=== PATIENT | female | born 2000 ===

== ENCOUNTER 2025-02-11 09:10 | Emergency (ER) | payer OTHER, SELFPAY ==
[2025-02-11] VITALS (9 sets, daily range): BP systolic 108–141; BP diastolic 61–76; PULSE 74–120; RESP 16–22; TEMP 36.2–36.8; O2SAT 97–100; BMI 25.4
--- NOTE | ~2025-02-11 | XR_ITS ---
CLINICAL HISTORY: sob 2 view chest x-ray Comparison: None Findings: No consolidation or effusion. Heart size is normal. No acute fracture. IMPRESSION: 1. No acute findings. This document has been electronically signed by: Judi Bryant MD on 02/11/2025 11:35:19
--- NOTE | 2025-02-11 09:27 | ECG_ITS ---
Test Reason : ALLERGIC REACTION Blood Pressure : */* mmHG Vent. Rate : 86 BPM Atrial Rate : 86 BPM P-R Int : 124 ms QRS Dur : 80 ms QT Int : 338 ms P-R-T Axes : 70 85 61 degrees QTcB Int : 404 ms Normal sinus rhythm with sinus arrhythmia Normal ECG No previous ECGs available Referred By: Nayana Paulino Electronically Signed By: DAVID DAVIS
--- NOTE | 2025-02-11 09:38 | ED_ITS ---
HPI - Allergic Reaction General Chief complaint: Allergic Reaction Stated complaint: allergic reaction, rash, sob Time Seen by Provider: 02/11/25 09:22 Source: patient Mode of arrival: ambulatory Limitations: no limitations History of Present Illness ED Provider: NAYANA PAULINO PA-C HPI narrative: 24-year-old female with no significant pmhx presents to the ED today for evaluation of possible allergic reaction. Patient reports consuming brownies that her mother made with peanut butter 5-6 days ago. Since this time reports rash to her face/extremities with associated shortness of breath. Reports significant itching, causing her to scratch so hard that she bleeds. She states this often happens when she has nuts and/or peanut butter. She has never been evaluated by an hydrochloric acid operator and has never been diagnosed with a nut allergy. She has never had to be hospitalist for her symptoms. Denies new soaps, lotions, detergents. She does report restarting her prozac approximately 3 weeks ago. She has tolerated this in the past. No other new medications/medication changes. No recent outdoor activities. No known tick or insect bites. Admits to hx of asthma. Has been using her home inhaler without relief. 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 Denies any known allergies. Denies headache, dizziness, vision changes, chest pain, N/V/D, abdominal pain. Related Data Previous Rx's ?Medication ?Instructions ?Recorded diphenhydramine HCl 25 mg capsule 50 mg (2 x 25 mg) PO Q8H PRN 02/11/25 (Benadryl) itching #20 caps epinephrine 0.3 mg/0.3 mL 0.3 mg (0.3 mL) IM Q10M PRN 02/11/25 injection, auto-injector (EpiPen) anaphylaxis #2 ea famotidine 20 mg tablet (Pepcid) 20 mg PO DAILY PRN itching #20 tabs 02/11/25 prednisone 10 mg tablet See Rx Instructions .Route 02/11/25 .COMPLEX #60 tabs Allergies Allergy/AdvReac Type Severity Reaction Status Date / Time No Known Allergies Allergy Verified 02/11/25 09:17 Review of Systems 2 Review of Systems: Yes all other systems are reviewed and are negative PMFSH Past Medical History Attestation statement: The following information was validated with the patient. Source: old records reviewed and nursing notes reviewed Social History Social History Advance Directives: No Advance Directives Information Provided: Yes Do you have a plan to hurt others: No Plan Patient : No Physical Exam ED Vital Signs: Vital Signs - 24 hr 02/11/25 09:11 02/11/25 09:23 02/11/25 09:53 Temperature 97.5 F 97.2 F Pulse Rate 120 H 106 H 74 Respiratory Rate 22 H 20 18 Blood Pressure 122/76 119/72 Pulse Oximetry 100 97 Oxygen Delivery Method Room Air Room Air 02/11/25 09:55 02/11/25 10:00 02/11/25 12:06 Temperature 97.3 F 97.3 F Pulse Rate 75 91 Respiratory Rate 20 16 16 Blood Pressure 126/63 108/61 Pulse Oximetry 100 98 Oxygen Delivery Method Room Air Room Air 02/11/25 13:55 02/11/25 14:09 02/11/25 14:16 Temperature 98.3 F 98.3 F Pulse Rate 104 H 106 H 106 H Respiratory Rate 16 16 16 Blood Pressure 141/76 H 141/76 H Pulse Oximetry 100 100 Oxygen Delivery Method Room Air Room Air BMI result Body Mass Index 25.4 On arrival, patient tachycardic and tachypneic. Not hypoxic. General: Well appearing, in no acute distress. Skin: Maculopapular rash noted to face and neck. Head: Normocephalic, atraumatic. EENT: Hearing is intact b/l. Conjunctiva clear. Sclera is anicteric. PERRLA. Moist mucous membranes.?mild edema noted to b/l tonsils, uvula midline. Controlling secretions and speaking in complete sentences. Neck: Supple without LAD. Airway patent. Cardiac: Chest wall symmetric. RRR Lungs: Normal respiratory effort without accessory muscle use. No tripoding. On auscultation, there are diffuse inspiratory wheezes, more so on left. no crackles. Abdomen: Soft, non-tender, non-distended. No rebound tenderness or guarding. Positive BS x4. Back: No midline spinous or paraspinal tenderness. No step off deformity. Ext: +see photo of LE below. noted excoriations/scabbed over lesions. no sloughing. non dermatomal pattern. spares palms/soles/webbed spaces/mucous membranes. no target lesions. Neuro: AOx3. Normal speech. Ambulating with steady gait. Course Course Course Narrative: 1301 -- CBC without leukocytosis or left shift. No anemia. H&H stable. Elevated eosinophils at 5.3. Chemistry without acute electrolyte abnormality requiring intervention. No HADLEY. Liver function around baseline. Negative COVID, flu, RSV. Chest x-ray unremarkable - no focal infiltrate or consolidation to suggest pneumonia. EKG showing normal sinus rhythm with sinus arrhythmia, rate of 86 beats per minute, no acute ischemic changes or ST elevations. > on re-evaluation of patient, I note significant improvement in overall appearance of facial rash. Less erythematous. She reports improvement in overall itching, with the exception of her neck. She states her neck still feels very itchy. She states that her breathing has overall improved and her airway appears patent. she is satting 100% on RA. On auscultation, she has mild inspiratory wheeze noted to left upper lung, after receiving magnesium, Solu-Medrol and breathing treatment. > given continued symptoms primarily around neck/airway, I have concern with sending patient home. I discussed possible admission for continued treatment/observation and patient is amenable. will reach out to hospitalist to discuss. 1400 -- Hospitalist ELIER Lubin at bedside. patient now stating she does not wish to stay for observation. he feels this is reasonable given patient is hemodynamically stable and overall well appearing. recommending discharge home rather than admission. I discussed with my attending dr. cuevas who has evaluated patient at bedside. feels discharge home on prednisone taper & epi pen is reasonable. she has been observed in the ED for >4 hours at this point with improvement in symptoms. patient is agreeable with this. advised to avoid peanuts/nuts. educated on epi pen use. prednisone taper sent to pharmacy along w/ benadryl and prednisone for itching. 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 Patient has remained stable throughout ED visit today. Discussed worrisome signs and symptoms and when to return to the ED. All questions answered at this time. Patient is agreeable with disposition and stable for discharge. Medications Administered Discontinued Medications Generic Name Dose Route Start Last Admin Trade Name Freq PRN Reason Stop Dose Admin Albuterol Sulfate 2.5 mg 02/11/25 13:51 02/11/25 13:53 Albuterol Sulfate (0.083%) 2.5 Mg/3 Ml Vial.Neb INHALE 02/11/25 13:52 2.5 mg ONCE ONE Administration Albuterol Sulfate 5 mg/ 0 mg 02/11/25 09:42 02/11/25 09:45 Albuterol/Ipratropium 3 ml INHALE 02/11/25 09:43 1 each ONCE ONE Administration Diphenhydramine HCl 25 mg 02/11/25 09:42 02/11/25 09:52 Diphenhydramine Hcl 50 Mg/Ml Vial IVPUSH 02/11/25 09:43 25 mg ONCE ONE Administration Famotidine 20 mg 02/11/25 09:42 02/11/25 09:50 Famotidine/Pf 20 Mg/2 Ml Vial IVPUSH 02/11/25 09:43 20 mg ONCE ONE Administration Magnesium Sulfate 2 gm in 50 mls @ 150 mls/hr 02/11/25 11:24 02/11/25 11:57 Magnesium Sulfate/H2o IV 02/11/25 11:43 Infused ONCE ONE Infusion Methylprednisolone Sodium Succinate 125 mg 02/11/25 09:27 02/11/25 09:45 Methylprednisolone Sod Succ 125 Mg/2 Ml Vial IVPUSH 02/11/25 09:28 125 mg ONCE ONE Administration Medical Decision Making Medical Decision Making MDM Narrative: 24-year-old female with no significant pmhx presents to the ED today for evaluation of possible allergic reaction. Initially tachycardic to 120, tachypneic to 22. Not hypoxic. Not requiring supplemental O2. please refer to physical exam section for findings. Differential diagnosis includes general allergic reaction, asthma, asthma exacerbation, contact/atopic/eczematous dermatitis, psoriasis. History and exam findings not consistent with lyme/tick bourne illness, herpes zoster/simplex, scabies, HFM, dangerous etiologies of rash such as SJS/TEN, or secondary dangerous causes such as petechial rashes from thrombocytopenia or rickettsial infections.? Plan: labs, viral swabs, CXR, EKG, lyme/tick testing ED bronch protocol + solumedrol + benadryl + pepcid ordered. Differential Diagnosis Differential Diagnoses: The differential diagnosis associated with the presentation includes as above. Admission/Observation Consideration of admission/observation: Escalation of care including admission/observation considered Consult Healthcare Provider Management of the patient was discussed with: Hospitalist (desean) Lab Data MDM Lab Attestation statement: I reviewed the patient's lab results. as above. 02/11/25 09:43 02/11/25 09:43 Labs: Lab Results 02/11/25 02/11/25 Range/Units 09:43 11:03 WBC 5.9 (4.8-10.8) X10*3/uL RBC 4.97 (4.20-5.50) X10*6/uL Hgb 14.8 (12.0-16.0) g/dl Hct 42.2 (37.0-47.0) % MCV 84.9 (80.0-98.0) fL MCH 29.8 (27.0-33.0) pg MCHC 35.1 H (31.0-35.0) g/dl RDW 13.1 (11.0-16.0) % Plt Count 239 (160-400) X10*3/uL MPV 9.0 L (9.4-12.3) fL Immature Gran % (Auto) 0.2 (0.0-0.4) % Neut % (Auto) 56.7 (45-73) % Lymph % (Auto) 23.9 (20-40) % [place] % (Auto) 12.9 H (2-11) % Eos % (Auto) 5.3 H (0-4) % Baso % (Auto) 1.0 (0-2) % Lymph # (Auto) 1.4 (1.2-4.9) X10*3/uL [place] # (Auto) 0.8 (0.1-1.2) X10*3/uL Eos # (Auto) 0.3 (0.0-0.4) X10*3/uL Baso # (Auto) 0.1 (0.0-0.2) X10*3/uL Abs Immat Gran (auto) 0.01 (0.00-0.03) X10*3/uL Absolute Neuts (auto) 3.3 (2.0-8.3) x10*3/uL Absolute Nucleated RBC 0.000 (0.0-0.012) X10*3/uL Nucleated RBC % (auto) 0.0 (0.0-0.2) /100WBC Sodium 139 (135-145) mmol/L Potassium 4.5 (3.3-5.1) mmol/L Chloride 107 (96-108) mmol/L Carbon Dioxide 23 (22-29) mmol/L Anion Gap 14 (12-20) BUN 11 (9-16) mg/dL Creatinine 1.02 (0.5-1.4) mg/dL Estim Creat Clear Calc 74.1 Estimated GFR > 60 Random Glucose 93 (60-115) mg/dL Calcium 9.7 (8.4-10.2) mg/dL Magnesium 1.9 (1.6-2.6) mg/dL Total Bilirubin 0.8 (0.0-1.0) mg/dL AST 36 H (5-31) U/L ALT 22 (0-31) U/L Alkaline Phosphatase 49 (39-117) U/L Total Protein 7.1 (6.5-8.0) g/dL Albumin 4.6 (3.5-5.0) g/dL Influenza Type A (PCR) NEGATIVE (Negative) Influenza Type B (PCR) NEGATIVE (Negative) RSV RNA Qual (PCR) NEGATIVE (Negative) SARS-CoV-2 RNA (RT-PCR) NEGATIVE (Negative) Independent Interpretation I performed an independent interpretation of an: EKG and Plain X-Ray Interpretation: EKG showing normal sinus rhythm, rate of 86 beats per minute, QT 338, no acute ischemic changes or ST elevations Chest x-ray without infiltrate or consolidation Radiology Impression Discussion of test interpretation with radiology: I have reviewed the radiologist's reading. Radiologist Impression: Procedure(s): XR chest 2V Accession Number(s): [id number] cc: Physician,None ; Nayana Paulino~ CLINICAL HISTORY: sob 2 view chest x-ray Comparison: None Findings: No consolidation or effusion. Heart size is normal. No acute fracture. IMPRESSION: 1. No acute findings. This document has been electronically signed by: Judi Bryant MD on 02/11/2025 11:35:19 Prescription Management I considered prescription management with: Other (prednisone, epi pen) Chronic Conditions Patient?s care impacted by: Other (asthma) Social Determinants Patient?s care significantly limited by Social Determinants of Health including: Other Social Determinant of Health Critical Care Time Critical Care Time Critical Care Time: No Discharge Plan Discharge Clinical Impression: Allergic reaction Patient Disposition: Home, Self-Care Instructions: General Allergic Reaction (ED) Additional Instructions: You have been evaluated in the Emergency Department today for an allergic reaction. You have been given medications to control your symptoms and after observation for several hours in the Emergency Department, you are stable for discharge at this time. You can take Benadryl and Pepcid, which are available over the counter, to help control your symptoms at home. You have also been given a prescription for steroids, please take them as directed. Please schedule an appointment with your primary care provider for follow up. I have provided you with a referral to an hydrochloric acid operator for further testing. Call them to establish care, they will not call you. Return to the Emergency Department if you experience rashes, difficulty breathing or swallowing, lip/mouth/tongue swelling, vomiting, or for any other concerning symptoms. An epi pen has been sent to your pharmacy, only to be used in severe emergencies such as inability to breath, trouble speaking, shortness of breath or any signs of anaphylaxis as discussed. If an episode pen is used, it it crucial that you come to the ED to be evaluated after use as you may have a rebound reaction. How to use an epi pen: * Place the orange tip against the middle of the outer thigh. * Push the auto injector firmly into the thigh until it clicks * Hold firmly in place for 3 seconds - count slowly. Please follow up with lan support specialist. You have been provided with a referral. Call them to make an appointment, they will not call you. Prescriptions: New prednisone 10 mg tablet See Rx Instructions .ROUTE .COMPLEX Qty: 60 0RF Rx Instructions: Days 1-5 take 6 pills daily (total 60 mg/ day). Then, every two days decrease does by one pill. For example, on day 6 and 7 take 5 pills daily (total 50 mg/day). On day 8 and 9, take 4 pills a day (total 40 mg/day). On day 10 and 11, take 3 pills a day (total of 30 mg/day). On day 12 and 13, take 2 pills a day (total 20 mg/day). On day 14 and 15, take 1 pill a day (total 10 mg/day). epinephrine [EpiPen] 0.3 mg/0.3 mL auto-injector 0.3 mg IM Q10M PRN (Reason: anaphylaxis) Qty: 2 0RF Rx Instructions: for 2 doses diphenhydramine HCl [Benadryl] 25 mg capsule 50 mg PO Q8H PRN (Reason: itching) Qty: 20 0RF famotidine [Pepcid] 20 mg tablet 20 mg PO DAILY PRN (Reason: itching) Qty: 20 0RF Referrals: Marvin Rodriguez MD [Physician] - Marivel Sharp PA-C [Physician Insurance Solicitor] - Interventions: ED Discharge Assessment Last Done: 02/11/25 14:16 Discharge Date/Time: 02/11/25 14:16 Print Language: [place]
[2025-02-11] MEDS: Albuterol Sulfate 5 MG, Albuterol/Iprat 2.5/0.5MG 3 ML 3 ML INHALE (09:45)
[2025-02-11] MEDS: methylPREDNISolone Sod Succ 125 MG/2 ML VIAL IVPUSH (09:45)
[2025-02-11 09:47] LABS: MANUAL DIFF FLAG NO
[2025-02-11 09:49] LABS: Basophils Absolute Auto 0.1 X10*3/uL (0.0-0.2); Eosinophils Absolute Auto 0.3 X10*3/uL (0.0-0.4); Eosinophils Percent Auto 5.3 % (0-4); Hematocrit 42.2 % (37.0-47.0); Hemoglobin 14.8 g/dl (12.0-16.0); Imm Gran Abs Auto 0.01 X10*3/uL (0.00-0.03); Imm Gran Pct Auto 0.2 % (0.0-0.4); Lymphocytes Absolute Auto 1.4 X10*3/uL (1.2-4.9); Lymphocytes Percent Auto 23.9 % (20-40); Mean Corpuscular HGB Conc 35.1 g/dl (31.0-35.0); Mean Corpuscular Hemoglobin 29.8 pg (27.0-33.0); Mean Corpuscular Volume 84.9 fL (80.0-98.0); Monocytes Absolute Auto 0.8 X10*3/uL (0.1-1.2); Monocytes Percent Auto 12.9 % (2-11); Neutrophils Absolute Auto 3.3 x10*3/uL (2.0-8.3); Neutrophils Percent Auto 56.7 % (45-73); Platelet Count 239 X10*3/uL (160-400); Red Blood Count 4.97 X10*6/uL (4.20-5.50); Red Cell Distribution Width 13.1 % (11.0-16.0); White Blood Count 5.9 X10*3/uL (4.8-10.8)
[2025-02-11] MEDS: Famotidine/PF 20 MG/2 ML VIAL IVPUSH (09:50)
[2025-02-11] MEDS: diphenhydrAMINE HCL 50 MG/ML VIAL 25 MG IVPUSH (09:52)
[2025-02-11 10:05] LABS: Alanine Aminotransferase 22 U/L (0-31); Albumin Level 4.6 g/dL (3.5-5.0); Alkaline Phosphatase 49 U/L (39-117); Anion Gap 14 (12-20); Aspartate Amino Transferase 36 U/L (5-31); Bilirubin Total 0.8 mg/dL (0.0-1.0); Blood Urea Nitrogen 11 mg/dL (9-16); Calcium 9.7 mg/dL (8.4-10.2); Carbon Dioxide 23 mmol/L (22-29); Chloride 107 mmol/L (96-108); Creatinine Clr Calc Pharmacy 74.1; Estimated Glomerular Filt Rate > 60; Glucose Random 93 mg/dL (60-115); Magnesium 1.9 mg/dL (1.6-2.6); Potassium 4.5 mmol/L (3.3-5.1); Sodium 139 mmol/L (135-145); Total Protein 7.1 g/dL (6.5-8.0)
[2025-02-11] MEDS: Magnesium Sulfate/H2O 2 GM/50 ML PIGGYBACK IV (11:31)
[2025-02-11 11:45] LABS: Influenza A PCR NEGATIVE (Negative); Influenza B PCR NEGATIVE (Negative); Resp Syncy Virus RNA Qual PCR NEGATIVE (Negative); SARS COV2 PCR INHOUSE NEGATIVE (Negative)
[2025-02-11] MEDS: Albuterol Sulfate (0.083%) 2.5 MG/3 ML VIAL.NEB INHALE (13:53)
[2025-02-12 21:33] LABS: Lyme Abs Screen <0.90 index
[2025-02-12 23:38] LABS: A. Phagocytphilium DNA,RT-PCR NOT DETECTED (NOT DETECTED); Babesia Microti DNA, RT-PCR NOT DETECTED (NOT DETECTED); Borrelia Miyamotoi,DNA RT-PCR NOT DETECTED (NOT DETECTED); E.Chaffeensis DNA RT-PCR NOT DETECTED (NOT DETECTED); Lyme(Borrelia ssp)DNA RT-PCR NOT DETECTED (NOT DETECTED)
== END 2025-02-11 14:16 | disposition home or self-care (01) ==
PROVIDERS: Physician Assistant Medical; Emergency Provider Emergency Medicine Emergency Medical Services
DX: T78.1XXA Other adverse food reactions, not elsewhere classified, initial encounter (principal); L27.2 Dermatitis due to ingested food; X58.XXXA Exposure to other specified factors, initial encounter; Y92.9 Unspecified place or not applicable; R21 Rash and other nonspecific skin eruption; R06.2 Wheezing; Z03.818 Encounter for observation for suspected exposure to other biological agents ruled out
CPT/HCPCS: 0241U; 36415; 71046; 80053; 83735; 85025; 86617; 86618; 87468; 87469; 87478; 87484; 87798; 93005; 94640; 96365; 96375; 99284; 99285; J1200; J1308; J2919; J3475

== ENCOUNTER → 2025-02-11 09:27 | Outpatient (BNV) | payer OTHER, SELFPAY | PROVIDERS: Emergency Provider Emergency Medicine Emergency Medical Services; Visit Provider Internal Medicine | DX: T78.40XA Allergy, unspecified, initial encounter (principal) | CPT/HCPCS: 93010 ==

== ENCOUNTER → 2025-02-11 09:27 | Outpatient (BNV) | payer OTHER, SELFPAY | PROVIDERS: Emergency Provider Emergency Medicine Emergency Medical Services; Visit Provider Radiology Diagnostic Radiology | DX: R06.02 Shortness of breath (principal) | CPT/HCPCS: 71046 ==